=== PATIENT | female | born 1980 | race Caucasian/White ===

== ENCOUNTER 2019-04-22 15:33 | Emergency (ER) | payer OTHER ==
[~2019-04-22] VITALS: Ht 162.6 cm; Wt 54.4 kg
[~2019-04-22 15:33] MED LIST: ABILIFY20 MG PO; ADDERALL 20 MG20 M1 PO; AMBIEN 5 MG TABL5 M1 PO; ASPIR 8181 MG PO; AZITHROMYCIN 2250 MG PO; BENZTROPINE ME0.5 MG PO; CLARITIN10 MG PO; CLONAZEPAM0.5 MG PO; IBUPROFEN 200200 M1 PO; KEFLEX500 MG PO; MEDROL DOSPAK21 TAB PO; MEDROLDOSEPACK PO; PREDNISONE 20 M20 MG PO; PRILOSEC 20 MG20 MG PO; PROAIR HFA8.5 GM INH; PROVENTIL HFA6.7 G1 INH; TESSALON PERLE100 MG PO; ULTRAM 50MG TAB50 MG PO; VALIUM5 MG; VALIUM5 MG PO; ZPAK PO
[2019-04-22 15:35] VITALS: BP 110/84
== END 2019-04-22 15:47 | disposition left against medical advice (07) ==
LOC: ER 15:33
DX: Z53.21 Procedure and treatment not carried out due to patient leaving prior to being seen by health care provider (principal)